=== PATIENT | female | born 1935 | race Caucasian/White ===

== ENCOUNTER 2017-06-29 14:52 | Emergency (ER) | payer MEDICARE, BC ==
[2017-06-29 15:26] LABS: #Basophils 0.1 thou/uL (0.0-0.2); #Eosinphils 0.4 thou/uL (0.0-0.7); #Lymphocytes 2.2 thou/uL (1.20-3.40); #Monocytes 0.7 thou/uL (0.11-0.59); %Basophils 0.6 % (0.0-1.0); %Eosinophils 4.4 % (0.0-10.0); %Lymphocytes 23.2 % (21.0-51.0); %Monocytes 7.7 % (0.0-10.0); %Neutrophils 64.2 % (42.0-75.0); Hemoglobin 10.7 g/dL (12.0-16.0); Mean Corpuscular HGB CONC 31.6 g/dL (32.0-36.0); Mean Corpuscular Hemoglobin 28.3 pg (27.0-31.0); Mean Corpuscular Volume 89.3 fl (81.0-99.0); Platelet Count 413 thou/uL (130-400); RBC Distribution Width 16.5 % (11.5-14.5); White Blood Cell (WBC) Count 9.3 thou/uL (4.8-10.8)
[2017-06-29 15:37] LABS: Bilirubin Negative (Negative); Blood, Urine Negative (Negative); Clarity TURBID (Clear); Glucose, Urine (Dipstick) Negative (Negative); Leukocyte Trace (Negative); Nitrite Negative (Negative); Protein, Urine (Dipstick) 30 mg/dL (Neg-Trace)
--- NOTE | 2017-06-29 15:37 | RAD ---
1 VIEW CHEST: Date: 06/29/17 COMPARISON: 06/20/17. HISTORY: Altered mental status. FINDINGS: Atherosclerosis of aorta. Normal cardiac silhouette. Pulmonary vessels and hilum are normal. Costophr enic angles are clear. Lung volumes are diminished, without consolidation or mass. No pneumothorax or osseous abnormalities. IMPRESSION: 1. No acute cardiopulmonary process. 2. Atherosclerosis. POS: [facility]
[2017-06-29 15:40] LABS: Bacteria/HPF None Seen HPF (None Seen)
[2017-06-29 15:41] LABS: Pathc Cast-AUWi Flag 17.15 (0-2.49)
--- NOTE | 2017-06-29 15:44 | CT ---
CT OF THE BRAIN WITHOUT CONTRAST: Date: 06/29/17 COMPARISON: 06/20/17. HISTORY: Altered mental status and possible seizure. TECHNIQUE: Multiple contiguous axial images were obtained in a CT of the brain without contrast. FINDINGS: There are scattered hypodensities in the subcortical and periventricular white matter, likely seconda ry to small vessel ischemic disease. No large confluent infarction is seen. There is no evidence of h ydrocephalus, intracranial hemorrhage, or extra-axial fluid collection. The calvarium and overlying soft tissues are unremarkable. The visualized paranasal sinuses and masto id air cells are well aerated. IMPRESSION: No evidence of acute intracranial abnormality. POS: [facility]
[2017-06-29 15:47] LABS: ALT (SGPT) 23 U/L (8-55); AST (SGOT) 20 U/L (5-34); Albumin 3.6 g/dL (3.4-4.8); Alkaline Phosphatase 139 U/L (40-150); Anion Gap 15 mmol/L (10-20); BUN (Urea Nitrogen) 25 mg/dL (9.8-20.1); Bilirubin, Total 0.2 mg/dL (0.2-1.2); Calc. Creatinine Clearance 0 mL/min (70-130); Carbon Dioxide 30 mmol/L (23-31); Chloride 103 mmol/L (98-107); Estimated GFR-MDRD 46; Globulin 3.6 g/dL (2.4-3.5); Glucose 121 mg/dL (83-110); Magnesium 2.1 mg/dL (1.6-2.6); Potassium 3.9 mmol/L (3.5-5.1); Protein, Total 7.2 g/dL (6.0-8.3); Sodium 144 mmol/L (136-145)
[2017-06-29 15:49] LABS: CKMB 1.1 ng/mL (0-6.6); Troponin I Less than 0.010 ng/mL (< 0.028)
[2017-06-29 15:51] LABS: Manual Microscopic Reviewed? No Path Casts Seen; RBC/HPF 0-3 HPF (0-3); Renal Epithelial None Seen HPF (0-3)
[2017-06-29 15:52] LABS: Calcium 12.4 mg/dL (7.8-10.44)
== END 2017-06-29 18:05 | disposition home or self-care (01) ==
LOC: ERS 14:52
DX: E86.0 Dehydration (principal); I10 Essential (primary) hypertension; M19.90 Unspecified osteoarthritis, unspecified site; K21.9 Gastro-esophageal reflux disease without esophagitis; Z86.73 Personal history of transient ischemic attack (TIA), and cerebral infarction without residual deficits; Z79.01 Long term (current) use of anticoagulants; Z79.82 Long term (current) use of aspirin; Z79.899 Other long term (current) drug therapy
CPT/HCPCS: 36415; 51701; 70450; 71045; 80053; 81003; 81015; 82553; 83735; 84484; 85025; 87040; 87086; 93005; 96360; A4353